=== PATIENT | male | born 1960 | race Caucasian/White ===

== ENCOUNTER 2019-05-16 07:36 | Day surgery (SDC) | payer OTHER, SELFPAY ==
[2019-05-16 07:55] VITALS: BP 109/73; PULSE 77; RESP 18; TEMP 36.2; O2SAT 99; BMI 27.6
[2019-05-16 08:26] LABS: Bedside Glucose 226 mg/dL (70-110)
--- NOTE | 2019-05-16 08:50 | RAD_ITS ---
PROCEDURE: Right L3 S1 radiofrequency ablation. DATE OF EXAMINATION: May 16, 2019. INDICATION: Male, 59 years old. Chronic low back pain. FLUOROSCOPY TIME (if supplied): (0:22) minutes/seconds. 7 images were obtained. Intraoperative imaging provided for right L3 S1 radiofrequency ablation. RAD/L/S Spine Min 4 Views IMPRESSION: Intraoperative imaging provided for right L3 S1 radiofrequency ablation. Electronically Signed: Malcom Mendenhall, at 11:28 EDT , Service support ,
[2019-05-16] MEDS: Bupivacaine 0.25% 30 ML Vial (09:05)
[2019-05-16] MEDS: MethylPREDNISolone Acetate 80 MG/ML Vial (09:05)
[2019-05-16 09:18] VITALS: BP 109/73; BP 114/79; PULSE 84; RESP 16; TEMP 36.2; O2SAT 95
[2019-05-16 09:23] VITALS: BP 109/73; BP 117/87; PULSE 83; RESP 16; O2SAT 98
[2019-05-16 09:28] VITALS: BP 109/73; BP 120/80; PULSE 77; RESP 16; O2SAT 99
[2019-05-16 09:33] VITALS: BP 109/73; PULSE 84; RESP 16; TEMP 36.1; O2SAT 96
[2019-05-16 09:48] VITALS: BP 109/73
--- NOTE | 2019-05-16 12:54 | PCM.OPRPT ---
Problem List (1) Degeneration of intervertebral disc of lumbosacral region Status: Chronic (2) Spondylosis of lumbosacral region without myelopathy or radiculopathy Status: Chronic Report of Operation Date of Procedure: 05/16/19 Pre-Operative Diagnosis: Lumbosacral spondylosis, lumbosacral degenerative disc disease, lumbar facet arthropathy Post-Operative Diagnosis: Lumbosacral spondylosis, lumbosacral degenerative disc disease, lumbar facet arthropathy Surgery/Procedure Performed:: Right-sided lumbar radio frequency ablation of the medial branch at L3, L4, L5, S1 Description of Surgical Findings:: PROCEDURE: Right-sided radiofrequency ablation of the medial branch L3, L4, L5, S1 PREOPERATIVE DIAGNOSES: Lumbosacral spondylosis, lumbosacral degenerative disc disease, lumbar facet arthropathy POSTOPERATIVE DIAGNOSES: Lumbosacral spondylosis, lumbosacral degenerative disc disease, lumbar facet arthropathy ANESTHESIA: MAC COMPLICATIONS: None BLOOD LOSS: Minimal PROCEDURE IN DETAIL: History and physical today was reviewed. Risks and benefits of procedure explained. The patient understood, agreed to the procedure and informed consent was obtained. IV inserted per routine protocol. The patient was taken to the operating room, placed in the prone position with a pillow positioned underneath the abdomen. The right side of the lower back was prepped and draped in a sterile fashion using iodine x 3. Under fluoroscopy guidance, on an oblique view, the L3 through S1 vertebral bodies were visualized. The skin and subcutaneous tissue was anesthetized with approximately 10 mL of 1% lidocaine using a 25-gauge regular needle. Under direct visualization with fluoroscopy at approximately 25-degree angle, starting on the right L3, ending on the right S1 passing through the L4-L5 using a 20-gauge 15 cm with a 10 mm curved active tip radiofrequency ablation needle the needle passed through the skin. The tip of the needle was maneuvered and directed towards the superior and medial gutter of the transverse process at the vicinity of the medial branch. Once the tip of the needle was in contact with the bone, the needle pulled approximately 2 mm up the bone. The stylet of each needle was then removed. After negative aspiration of blood with CSF and confirmation of AP as well as oblique view, radiofrequency ablation probe was then inserted at each level. Impedance was then recorded at L3 to be 275, at L4 227, at L5 281, at S1 242 ohm. Motor-evoked potential was then initiated to 1.5 volt without any motor response at each corresponding level. The probe was then removed intact and a total of 6 mL preservative-free 1% lidocaine was injected in divided doses between those 4 levels after negative aspiration of blood with CSF. The radiofrequency ablation probe was then reinserted after confirmation of AP, oblique as well as lateral view. Radiofrequency ablation was then initiated to 80 degrees Celsius for 90 seconds at each level. Once concluded, the probe was then removed intact and a total of 6 mL of preservative-free 0.25% Marcaine with 40 mg Depo-Medrol was injected in divided doses between those 4 levels. The needles were then removed intact. The patient experienced no signs or symptoms of intrathecal, intravascular injection. The patient experienced no paraesthesia. The procedure was completed without any apparent difficulty, any complication. The patient appeared to tolerate well. Sensory as well as motor exam was unchanged from prior to procedure. ASSESSMENT AND PLAN: This is a 59-year-old Male with lumbosacral spondylosis, lumbosacral degenerative disc disease, lumbar facet arthropathy, status post right-sided radiofrequency ablation of the medial branch L3 through S1. The patient will continue his current medications. The patient will follow up in approximately 2 weeks for reevaluation.
== END 2019-05-16 09:56 | disposition home or self-care (01) ==
LOC: SDC 07:38 → AC 07:40
PROVIDERS: Family Provider Nurse Practitioner Family; PCP Nurse Practitioner Family; Referring Provider Anesthesiology Pain Medicine; Visit Provider Anesthesiology Pain Medicine
PROC: (CPT 62282; principal; 2019-05-16 08:45)
DX: M47.27 Other spondylosis with radiculopathy, lumbosacral region (principal); M51.36 Other intervertebral disc degeneration, lumbar region; M48.061 Spinal stenosis, lumbar region without neurogenic claudication; M46.96 Unspecified inflammatory spondylopathy, lumbar region; M50.30 Other cervical disc degeneration, unspecified cervical region; M47.812 Spondylosis without myelopathy or radiculopathy, cervical region; M48.02 Spinal stenosis, cervical region; M54.81 Occipital neuralgia; E11.9 Type 2 diabetes mellitus without complications; I10 Essential (primary) hypertension; E78.00 Pure hypercholesterolemia, unspecified; J44.9 Chronic obstructive pulmonary disease, unspecified; M19.90 Unspecified osteoarthritis, unspecified site; K21.9 Gastro-esophageal reflux disease without esophagitis; K58.9 Irritable bowel syndrome, unspecified; Z87.19 Personal history of other diseases of the digestive system; Z87.11 Personal history of peptic ulcer disease; Z90.81 Acquired absence of spleen; Z90.49 Acquired absence of other specified parts of digestive tract; Z79.891 Long term (current) use of opiate analgesic; Z79.899 Other long term (current) drug therapy; F17.220 Nicotine dependence, chewing tobacco, uncomplicated; Z72.0 Tobacco use
CPT/HCPCS: 01992; 62282 ×4; 72110; 76000; 82962; J7120

== ENCOUNTER 2020-06-04 07:10 | Day surgery (SDC) | payer MEDICARE, SELFPAY ==
[2020-06-04 07:32] VITALS: BP 124/73; PULSE 70; RESP 16; TEMP 36.9; O2SAT 97; BMI 26.6
[2020-06-04] MEDS: Lactated Ringers 1,000 ML 100 ML IV (07:48)
[2020-06-04 07:55] LABS: Bedside Glucose 156 mg/dL (70-110)
--- NOTE | 2020-06-04 08:20 | RAD_ITS ---
STUDY: X-RAY - CERVICAL SPINE REASON FOR EXAM: Male, 60 years old. C4,5,6 FACET RADIOFREQUENCY ABLATION TECHNIQUE: Intraoperative view(s) of the cervical spine were obtained. COMPARISON: None FINDINGS: Intraoperative imaging provided for left C4-C5 and C5-C6 radiofrequency ablations. RAD/Cerv Spine 2 or 3 Views IMPRESSION: Intraoperative imaging provided for left C4-C5 and C5-C6 radiofrequency ablation. Electronically Signed: Malcom Mendenhall, at 10:19 EDT , Service support ,
[2020-06-04] MEDS: Bupivacaine 0.25% 30 ML Vial (08:28)
[2020-06-04] MEDS: MethylPREDNISolone Acetate 80 MG/ML Vial (08:29)
[2020-06-04 08:48] VITALS: BP 122/91; BP 124/73; PULSE 80; RESP 16; TEMP 36.3; O2SAT 100
[2020-06-04 08:53] VITALS: BP 124/73; BP 129/80; PULSE 79; RESP 16; O2SAT 100
[2020-06-04 08:58] VITALS: BP 117/77; BP 124/73; PULSE 75; RESP 16; O2SAT 99
[2020-06-04 09:03] VITALS: BP 117/72; BP 124/73; PULSE 72; RESP 16; TEMP 36.5; O2SAT 98
--- NOTE | 2020-06-04 09:32 | OP.PCM_ITS ---
Report of Operation Date of Procedure: 06/04/20 Description of Surgical Findings:: PREOPERATIVE DIAGNOSIS: Cervical spondylosis, cervical degenerative disc disease, cervical facet arthropathy POSTOPERATIVE DIAGNOSIS: Cervical spondylosis, cervical degenerative disc disease, cervical facet arthropathy PROCEDURE PERFORMED: Left-sided cervical radiofrequency ablation of the medial branch at C4, C5, C6, and C7. ANESTHESIA: MAC. BLOOD LOSS: Minimal. COMPLICATIONS: None. DESCRIPTION OF PROCEDURE: History and physical of today was reviewed. Risks and benefits of the procedure were explained. The patient understood and agreed to proceed. Informed consent was obtained. IV inserted per routine protocol. The patient was taken to the operating room and placed in the prone position with a pillow positioned underneath the chest. The neck area was prepped and draped in a sterile fashion using iodine x3. Under fluoroscopy guidance on an AP view, the C4 through C7 vertebral bodies were visualized. The skin and subcutaneous tissue was anesthetized with approximately 10 mL of 1% lidocaine using a 25-gauge regular needle. Under direct visualization on fluoroscopy on a lateral view, using a 21-gauge 10-cm with a 10-mm curved active-tip radiofrequency ablation needle, the needle was passed through the skin. The tip of the needle was maneuvered and directed towards the epiphyseal junction of each corresponding vertebra, starting on the left C4, ending on the left C7, passing through the C5 and C6. Once the tip of the needle was at the vicinity of the medial branch and at the middle of the trapezoid on the lateral view, the stylette of each needle was then removed. After negative aspiration of blood or CSF and confirmation on AP, oblique as well as lateral view, radiofrequency ablation probe was then inserted at each level. Impedance was then recorded at C4 to be 309 ohm, at C5 to be 249 ohm, at C6 to be 279 ohm, and at C7 to be 275 ohm. Motor-evoked potential was then initiated to 1.5 volt without any motor response to each corresponding level or the left arm. The probe was then removed intact and a total of 4 mL of preservative-free 1% lidocaine was injected in divided doses between those four levels after negative aspiration of blood or CSF. After repeated confirmation, the radiofrequency ablation probe was then inserted and after repeated confirmation on AP, oblique as well as lateral view, radiofrequency ablation was then initiated to approximately 80 degree Celsius for 60 second at each level. Once concluded, the probe was then removed intact. A total of 4 mL of preservative-free 0.25% Marcaine with 40 mg of Depo-Medrol was injected in divided doses between those four levels. The needles were then removed intact. The patient experienced no sign or symptoms of intrathecal or intravascular injection. The patient experienced no paresthesia. The procedure was completed without any apparent difficulty or any complications. The patient appeared to tolerate it well. Sen erinn as well as motor exam was unchanged from prior to the procedure. ASSESSMENT AND PLAN: This is a 60-year-old male with cervical spondylosis, cervical degenerative disc disease, cervical facet arthropathy status post left-sided cervical radiofrequency ablation of the medial branch C4-C7, patient will continue his current medications, patient will follow approximately 2 weeks for reevaluation.
[2020-06-04 09:35] VITALS: BP 124/73
== END 2020-06-04 09:36 | disposition home or self-care (01) ==
LOC: SDC 07:13 → AC 07:13
PROVIDERS: PCP Nurse Practitioner Family; Referring Provider Anesthesiology Pain Medicine; Visit Provider Anesthesiology Pain Medicine
PROC: (CPT 64633; principal; 2020-06-04 08:05)
DX: M47.812 Spondylosis without myelopathy or radiculopathy, cervical region (principal); M50.30 Other cervical disc degeneration, unspecified cervical region; M46.92 Unspecified inflammatory spondylopathy, cervical region; M48.02 Spinal stenosis, cervical region; M47.27 Other spondylosis with radiculopathy, lumbosacral region; M51.36 Other intervertebral disc degeneration, lumbar region; M46.96 Unspecified inflammatory spondylopathy, lumbar region; M79.7 Fibromyalgia; M17.11 Unilateral primary osteoarthritis, right knee; M54.81 Occipital neuralgia; M48.061 Spinal stenosis, lumbar region without neurogenic claudication; E11.9 Type 2 diabetes mellitus without complications; I10 Essential (primary) hypertension; E78.5 Hyperlipidemia, unspecified; K58.9 Irritable bowel syndrome, unspecified; K21.9 Gastro-esophageal reflux disease without esophagitis; E78.00 Pure hypercholesterolemia, unspecified; J44.9 Chronic obstructive pulmonary disease, unspecified; Z87.11 Personal history of peptic ulcer disease; Z90.49 Acquired absence of other specified parts of digestive tract; Z79.891 Long term (current) use of opiate analgesic; Z79.899 Other long term (current) drug therapy; Z87.891 Personal history of nicotine dependence; Z87.19 Personal history of other diseases of the digestive system
CPT/HCPCS: 01992; 64633; 64634 ×2; 72040; 76000; 82962; J7120

== ENCOUNTER 2020-10-15 08:16 | Day surgery (SDC) | payer MEDICARE, SELFPAY ==
[2020-10-15 08:46] VITALS: BP 100/69; PULSE 73; RESP 16; TEMP 36.3; O2SAT 98; BMI 27.5
[2020-10-15] MEDS: Lactated Ringers 1,000 ML 100 ML IV (08:51)
--- NOTE | 2020-10-15 09:00 | RAD_ITS ---
PROCEDURE: Left C4-C7 facet cervical block. DATE OF EXAMINATION: 10/15/2020. INDICATION: Male, 60 years old. Chronic cervical pain. FLUOROSCOPY TIME (if supplied): (10.4 seconds) minutes/seconds. 4 images were obtained. Intraoperative imaging provided for left C4-C7 cervical facet injection. RAD/Cerv Spine 4 or 5 Views IMPRESSION: Intraoperative imaging provided for left C4-C7 cervical facet injection. Electronically Signed: Malcom Mendenhall, at 9:21 EST , Service support ,
[2020-10-15] MEDS: MethylPREDNISolone Acetate 40 MG/ML Vial IM (09:10)
[2020-10-15] MEDS: Bupivacaine 0.25% 30 ML Vial (09:10)
[2020-10-15 09:21] VITALS: BP 100/69; BP 125/83; PULSE 77; RESP 16; TEMP 36.6; O2SAT 100
[2020-10-15 09:30] VITALS: BP 100/69; BP 119/79; PULSE 73; RESP 16; O2SAT 99
[2020-10-15 09:35] VITALS: BP 100/69; BP 108/62; PULSE 69; RESP 16; O2SAT 100
[2020-10-15 09:37] VITALS: BP 100/69; BP 122/74; PULSE 70; RESP 16; O2SAT 99
[2020-10-15 09:51] LABS: Bedside Glucose 130 mg/dL (70-110)
[2020-10-15 09:58] VITALS: BP 100/69
--- NOTE | 2020-10-15 12:06 | OP.PCM_ITS ---
Report of Operation Date of Procedure: 10/15/20 Description of Surgical Findings:: PREOPERATIVE DIAGNOSIS: Cervical spondylosis, cervical degenerative disc disease, cervical facet arthropathy POSTOPERATIVE DIAGNOSIS: Cervical spondylosis, cervical degenerative disc disease, cervical facet arthropathy PROCEDURE PERFORMED: Left-sided cervical facet steroid injection, C4, C5, C6, and C7. ANESTHESIA: MAC. BLOOD LOSS: Minimal. COMPLICATIONS: None. DESCRIPTION OF PROCEDURE: History and physical of today was reviewed. Risks and benefits of the procedure were explained. The patient understood and agreed to proceed. Informed consent was obtained. IV inserted per routine protocol. The patient was taken to the operating room and placed in the prone position with a pillow positioned underneath the chest. The neck area was prepped and draped in a sterile fashion using iodine x3. Under fluoroscopy guidance on an AP view, the C4 through C7 vertebral bodies were visualized at approximately 10- degree angle, starting on the left C4 ending on the left C7, passing through the C5 and C6. Using a 25-gauge 3-1/2-inch spinal needle, the needle was advanced via the skin. The tip of the needle was maneuvered and directed towards the epiphyseal junction of each corresponding vertebra. Once the tip of the needle was at the vicinity of the medial branch, the needle was pulled approximately 2 mm off the bone. After negative aspiration of blood or CSF and confirmation on AP, oblique as well as lateral view, a total of 4 mL of preservative-free 0.25% Marcaine with 80 mg of Depo-Medrol was injected in divided doses between those four levels. The needles were then removed intact. The patient experienced no sign or symptoms of intrathecal or intravascular injection. The patient experienced no paresthesia. The procedure was completed without any apparent difficulty or any complications. The patient appeared to tolerate it well. ASSESSMENT AND PLAN: This is a 60-year-old male with cervical spondylosis, cervical degenerative disc disease, cervical facet arthropathy status post left-sided cervical facet steroid injection C4-C7 patient will continue his current medications, patient will follow in approximately 2 weeks for reevaluation.
== END 2020-10-15 10:09 | disposition home or self-care (01) ==
LOC: SDC 08:19 → AC 08:19
PROVIDERS: PCP Nurse Practitioner Family; Referring Provider Anesthesiology Pain Medicine; Visit Provider Anesthesiology Pain Medicine
PROC: 3E0U3BZ Introduction of Anesthetic Agent into Joints, Percutaneous Approach (ICD-10-PCS; CPT 64490; principal; 2020-10-15 09:40)
DX: M47.812 Spondylosis without myelopathy or radiculopathy, cervical region (principal); M50.30 Other cervical disc degeneration, unspecified cervical region; M48.02 Spinal stenosis, cervical region; M46.92 Unspecified inflammatory spondylopathy, cervical region; M17.11 Unilateral primary osteoarthritis, right knee; M47.27 Other spondylosis with radiculopathy, lumbosacral region; M46.96 Unspecified inflammatory spondylopathy, lumbar region; M51.36 Other intervertebral disc degeneration, lumbar region; M48.061 Spinal stenosis, lumbar region without neurogenic claudication; M54.81 Occipital neuralgia; M19.90 Unspecified osteoarthritis, unspecified site; I10 Essential (primary) hypertension; E11.9 Type 2 diabetes mellitus without complications; E78.5 Hyperlipidemia, unspecified; J44.9 Chronic obstructive pulmonary disease, unspecified; Z87.11 Personal history of peptic ulcer disease; Z90.49 Acquired absence of other specified parts of digestive tract; Z90.81 Acquired absence of spleen; Z79.891 Long term (current) use of opiate analgesic; Z79.899 Other long term (current) drug therapy; Z87.891 Personal history of nicotine dependence
CPT/HCPCS: 01992; 64490; 64491; 64492; 72040; 72050; 82962; J7120

== ENCOUNTER 2021-06-17 10:30 | Day surgery (SDC) | payer MEDICARE, SELFPAY ==
--- NOTE | 2021-06-14 12:45 | NURSING ---
This RN received a voicemail from [facility] Navigator requesting pt arrival time. The phone number she left for [facility] connected to [facility] but there was no way the menu nor the agent with which this RN spoke could connect this RN with Chit[facility]. This RN phoned Mert and notified him of his arrival time. Mert verbalized that he would be able to let Chitra know.
[2021-06-17 11:27] VITALS: BP 101/74; PULSE 77; RESP 16; TEMP 36.4; O2SAT 98; BMI 27.9
[2021-06-17 11:41] LABS: Bedside Glucose 117 mg/dL (70-110)
--- NOTE | 2021-06-17 12:45 | RAD_ITS ---
PROCEDURE: Cervical epidural steroid injection. DATE OF EXAMINATION: 06/17/2021. INDICATION: Male, 61 years old. Chronic neck pain. FLUOROSCOPY TIME (if supplied): (8.2 seconds) minutes/seconds RAD/Spine 1 View Any Level IMPRESSION: Intraoperative imaging provided for cervical epidural steroid injection. Electronically Signed: Malcom Mendenhall MD at 22:25 EDT , Service support ,
[2021-06-17] MEDS: MethylPREDNISolone Acetate 80 MG/ML Vial (12:48)
[2021-06-17 12:55] VITALS: BP 101/74; BP 116/73; PULSE 69; RESP 16; TEMP 36.3; O2SAT 97
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
--- NOTE | 2021-06-17 17:07 | OP.PCM_ITS ---
Report of Operation Date of Procedure: 06/17/21 Description of Surgical Findings:: PREOPERATIVE DIAGNOSES: Cervical radiculopathy, cervical degenerative disc disease, cervical spinal stenosis POSTOPERATIVE DIAGNOSES: Cervical radiculopathy, cervical degenerative disc disease, cervical spinal stenosis PROCEDURE PERFORMED: Cervical epidural steroid injection, interlaminar at C7-T1 under fluoroscopic guidance. ANESTHESIA: Local. BLOOD LOSS: Minimal. COMPLICATIONS: None. DESCRIPTION OF PROCEDURE: History and physical of today was reviewed. Risks and benefits of the procedure were explained. The patient understood and agreed to proceed. Informed consent was obtained. IV inserted per routine protocol. The patient was taken to the operating room and placed in the prone position with a pillow positioned underneath the chest. The neck area was prepped and draped in a sterile fashion using iodine x3. Under fluoroscopy guidance on an AP view, the C7-T1 interlaminar space was identified. The skin and subcutaneous tissue was anesthetized with approximately 3 mL of 1% lidocaine using a 25-gauge regular needle. Under direct visualization on fluoroscopy, on AP view, using a 20-gauge 2-1/2-inch Tuohy needle, the needle was advanced via the skin. The tip of the needle was maneuvered and directed towards the interlaminar space at C7- T1. Loss of resistance technique was carried to air. Loss of resistance technique was encountered. Once encountered, after negative aspiration for blood and CSF, a total of 1 mL of contrast was injected to confirm correct placement of the needle as well as cephalocaudal spread of the contrast. Confirmation was obtained on AP as well as lateral view. After repeated negative aspiration and confirmation, a total of 3 mL of preservative-free normal saline and 80 mg of Depo-Medrol was injected easily. The needle was then removed intact. The patient experienced no sign or symptoms of intrathecal or intravascular injection. The patient experienced no paresthesia. The procedure was completed without any apparent difficulty or any complications. The patient appeared to tolerate it well. ASSESSMENT AND PLAN: This is a 61-year-old male with cervical radiculopathy, cervical degenerative disc disease, cervical spinal stenosis status post cervical epidural steroid injection interlaminar at C7-T1 under fluoroscopic guidance, patient will continue his current medications, patient will follow in approximately 2 weeks for reevaluation.
== END 2021-06-17 13:20 | disposition home or self-care (01) ==
LOC: SDC 10:40 → AC 10:55
PROVIDERS: PCP Nurse Practitioner Family; Referring Provider Anesthesiology Pain Medicine; Visit Provider Anesthesiology Pain Medicine
PROC: 3E0S3BZ Introduction of Anesthetic Agent into Epidural Space, Percutaneous Approach (ICD-10-PCS; CPT 62320; principal; 2021-06-17 11:55)
DX: M50.10 Cervical disc disorder with radiculopathy, unspecified cervical region (principal); M47.22 Other spondylosis with radiculopathy, cervical region; M48.02 Spinal stenosis, cervical region; M47.27 Other spondylosis with radiculopathy, lumbosacral region; M51.17 Intervertebral disc disorders with radiculopathy, lumbosacral region; M46.96 Unspecified inflammatory spondylopathy, lumbar region; M48.061 Spinal stenosis, lumbar region without neurogenic claudication; M51.36 Other intervertebral disc degeneration, lumbar region; I10 Essential (primary) hypertension; M79.7 Fibromyalgia; M54.81 Occipital neuralgia; J44.9 Chronic obstructive pulmonary disease, unspecified; E78.5 Hyperlipidemia, unspecified; E11.9 Type 2 diabetes mellitus without complications; M19.90 Unspecified osteoarthritis, unspecified site; Z87.11 Personal history of peptic ulcer disease; Z90.81 Acquired absence of spleen; Z79.891 Long term (current) use of opiate analgesic; Z79.84 Long term (current) use of oral hypoglycemic drugs; Z79.899 Other long term (current) drug therapy; F17.200 Nicotine dependence, unspecified, uncomplicated
CPT/HCPCS: 62321; 64490; 72020; 82962; J7120

== ENCOUNTER 2023-01-05 12:36 | Day surgery (SDC) | payer MEDICARE, SELFPAY ==
[2023-01-05 13:03] VITALS: BP 118/62; PULSE 74; RESP 16; TEMP 36.6; O2SAT 95; BMI 27.3
[2023-01-05] MEDS: Lactated Ringers 1,000 ML 15 ML IV (13:19)
[2023-01-05 13:40] LABS: Bedside Glucose 213 mg/dL (74-106)
--- NOTE | 2023-01-05 14:39 | RAD_ITS ---
PROCEDURE: Caudal epidural. DATE OF EXAMINATION: 01/05/2023. INDICATION: Male, 62 years old. Chronic low back pain. FLUOROSCOPY TIME (if supplied): (4.7 seconds) minutes/seconds. 2 images were submitted. RAD/Fluor Guidance for Spine Inj IMPRESSION: Intraoperative fluoroscopic services provided for caudal epidural. Electronically Signed: Malcom Mendenhall MD at 15:52 EST ,
[2023-01-05] MEDS: 0.9% Normal Saline (Pres. free 10 ML Vial (14:41)
[2023-01-05] MEDS: MethylPREDNISolone Acetate 80 MG/ML Vial (14:41)
[2023-01-05] MEDS: Lidocaine 1% (5 ml sdv) 5 ML Vial (14:41)
[2023-01-05 14:48] VITALS: BP 117/74; BP 118/62; PULSE 78; RESP 18; TEMP 36.4; O2SAT 100
[2023-01-05 14:50] VITALS: BP 118/62; BP 129/15; PULSE 76; RESP 18; O2SAT 100
[2023-01-05 14:55] VITALS: BP 118/62; BP 119/78; PULSE 74; RESP 18; O2SAT 100
[2023-01-05 15:08] VITALS: BP 118/62; BP 123/76; PULSE 76; RESP 18; TEMP 36.3; O2SAT 100
--- NOTE | 2023-01-05 15:09 | OP.PCM_ITS ---
Report of Operation Date of Procedure: 01/05/23 Pre-Operative Diagnosis: Lumbosacral radiculopathy, lumbosacral degenerative di sc disease, lumbosacral spinal stenosis Post-Operative Diagnosis: Lumbosacral radiculopathy, lumbosacral degenerative disc disease, lumbosacral spinal stenosis Surgery/Procedure Performed:: Caudal epidural steroid injection under fluoroscopic guidance Type of Anesthesia: MAC Estimated Blood Loss (mL): Minimal Description of Procedure: DESCRIPTION OF PROCEDURE: History and physical of today was reviewed. Risks and benefits of the procedure were explained. The patient understood and agreed to proceed. Informed consent was obtained. IV inserted per routine protocol. The patient was taken to the operating room and placed in the prone position with a pillow positioned underneath the abdomen. The lower back and tailbone area was prepped and draped in a sterile fashion using iodine x3. Under fluoroscopy guidance on a lateral view, the caudal space was identified. The skin and subcutaneous tissue was anesthetized with approximately 3 mL of 1% lidocaine using a 25-gauge regular needle. Under direct visualization with fluoroscopy, using a 22-gauge 3-1/2-inch spinal needle, the needle was advanced via the skin through the sacral hiatus. The tip of the needle was passed through the sacrococcygeal ligament and advanced to approximately S4 area. After negative aspiration of blood or CSF, a total of 3 mL of contrast was injected to confirm correct placement of the needle as well as cephalad spread. The spread was followed to approximately L5 area. After confirmation on AP as well as lateral view and repeated negative aspiration, a total of 15 mL of preservative-free 0.125% Marcaine with 80 mg of Depo-Medrol was injected easily. The needle was then removed intact. The patient experienced no sign or symptoms of intrathecal or intravascular injection. The patient experienced no paresthesia. The procedure was completed without any apparent difficulty or any complications. The patient appeared to tolerate it well. ASSESSMENT AND PLAN: This is a 62-year-old male with lumbosacral radiculopathy, lumbosacral degenerative disc disease, lumbosacral spinal stenosis status post caudal epidural steroid injection, patient will continue his current medications, patient will follow in approximately 2 weeks for reevaluation. Complications None
[2023-01-05 15:29] VITALS: BP 118/62
== END 2023-01-05 15:30 | disposition home or self-care (01) ==
LOC: SDC 12:38 → AC 12:41
PROVIDERS: PCP Nurse Practitioner Family; Referring Provider Anesthesiology Pain Medicine; Visit Provider Anesthesiology Pain Medicine
PROC: 3E0S3BZ Introduction of Anesthetic Agent into Epidural Space, Percutaneous Approach (ICD-10-PCS; CPT 62282; principal; 2023-01-05 14:05)
DX: M51.17 Intervertebral disc disorders with radiculopathy, lumbosacral region (principal); J44.9 Chronic obstructive pulmonary disease, unspecified; E11.9 Type 2 diabetes mellitus without complications; E78.00 Pure hypercholesterolemia, unspecified; M48.07 Spinal stenosis, lumbosacral region
CPT/HCPCS: 62323; 64483; 77003; 82962; J7120; J3490

== ENCOUNTER 2024-01-04 09:52 | Outpatient (RCR) | payer MEDICARE, SELFPAY ==
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
--- NOTE | 2024-03-14 17:47 | HP.PT.NRP ---
Patient Information Patient Information: YUNI PETER was seen in my office for initial evaluation on 01/04/24. The following Plan of Care was established for this patient: POC Established Initial Frequency: 2x /Week Initial Duration: 4 Weeks Anticipated Interventions Patient/Client Instruction: Educate patient on: Condition and Plan of Care For the Purpose of:: To decrease pain, To increase ROM, To improve muscle performance and motor function, To improve ability to perform ADL's, To increase tolerance to activity/condition/position, To improve ability of physical actions for home/community/work/leisure, To improve health of tissue, To decrease soft tissue restriction and To increase flexibility/ROM Therapeutic Exercise to Include: Strength training, Body mechanics, Postural training, Flexibilty training, Dynamic Lumbar Stabilization and [place] Exercises For the Purpose of:: To decrease pain, To increase ROM, To improve muscle performance and motor function, To improve ability to perform ADL's, To increase tolerance to activity/condition/position, To improve ability of physical actions for home/community/work/leisure, To improve health of tissue, To decrease soft tissue restriction, To increase flexibility/ROM, To improve endurance, To reduce risk of recurrence, To improve decision making and To improve tolerance to ADL's TENS: Yes IF ES: Yes Cryotherapy (ice pack, ice massage): Yes Thermo therapy (hot pack): Yes Ultrasound (thermal/non thermal): Yes For the Purpose of:: To decrease pain, To increase ROM, To improve health of tissue and To decrease soft tissue restriction Last Seen Last Seen: This patient was last seen in our office . Pertinent comments regarding their Physical therapy will appear below: Patient was seen for PT for lumbar radiculopathy for HEP. At this point I will be discontinuing this patient from physical therapy. I would be happy to see this patient again in the future if found appropriate by the physician. Thank you! Raji Burton, PT, Cert MDT, OCS Balance/Gait/Functional tests Balance/Special Test Scores Oswestry Low Back Score: 29
== END 2024-01-04 19:00 | disposition home or self-care (01) ==
LOC: PT 09:52
PROVIDERS: PCP Nurse Practitioner Family; Referring Provider Orthopaedic Surgery; Visit Provider Orthopaedic Surgery
DX: M54.16 Radiculopathy, lumbar region (principal); M25.552 Pain in left hip
CPT/HCPCS: 97162; 97530

== ENCOUNTER → 2024-08-08 | Outpatient (CLI) | payer MEDICARE, SELFPAY ==
[2024-08-08 15:07] LABS: Hemoglobin A1c 7.8 % (3.8-5.6)
[2024-08-09 04:07] LABS: Fructosamine 307 umol/L (0-285)
== END | disposition home or self-care (01) ==
PROVIDERS: PCP Nurse Practitioner Family; Referring Provider Orthopaedic Surgery; Visit Provider Orthopaedic Surgery
DX: E11.9 Type 2 diabetes mellitus without complications (principal)
CPT/HCPCS: 36415; 82985; 83036